=== PATIENT | male | born 1990 | race Two or more races ===

== ENCOUNTER 2020-11-29 18:48 | Emergency (ER) | payer SELFPAY ==
[2020-11-29 20:26] LABS: APPEARANCE,URINE CLEAR (CLEAR); BILIRUBIN,URINE NEGATIVE (NEGATIVE); GLUCOSE, URINE (UA) NEGATIVE (NEGATIVE); KETONES,URINE TRACE mg/dL (NEGATIVE); LEUKOCYTE ESTERASE ,URINE NEGATIVE (NEGATIVE); NITRATE,URINE NEGATIVE (NEGATIVE); OCCULT BLOOD,URINE NEGATIVE (NEGATIVE); PROTEIN,URINE NEGATIVE (NEGATIVE)
[2020-11-29] MEDS ORDERED: ACYCLOVIR 200 MG CAPSULE PO ONE (22:00)
[2020-11-29] MEDS ORDERED: LIDOCAINE/PF 1% 2 ML VIAL IM ONE (22:00)
[2020-11-29] MEDS ORDERED: AZITHROMYCIN 500 MG TABLET PO ONE (22:00)
[2020-11-29] MEDS ORDERED: CefTRIAXone SODIUM 1 GM/VIAL IM ONE (22:00)
[2020-11-29 23:02] VITALS: BP 132/72
== END 2020-11-29 23:16 | disposition home or self-care (01) ==
LOC: EDBD 18:51 → EMS 18:51
DX: B00.9 Herpesviral infection, unspecified (principal); R30.0 Dysuria
CPT/HCPCS: 81003; 87491; 87591; 96372; 99283; A9575; J0696; J3490; Q9967